=== PATIENT | male | born 1990 | race Two or more races ===

== ENCOUNTER 2016-10-31 22:19 | Emergency (ER) | payer SELFPAY ==
[~2016-10-31] VITALS: Ht 177.8 cm; Wt 72.6 kg
[2016-10-31 22:50] VITALS: BP 107/63
[2016-10-31] MEDS ORDERED: QUETIAPINE FUMA25 MG ORAL (22:52)
[2016-10-31 23:18] LABS: BASOPHILS % (AUTO) 1.7 % (0.0-2.0); LYMPHOCYTES % (AUTO) 31.7 % (20.0-45.0); MEAN CORPUSCULAR HEMOGLOBIN 30.4 PG (27.0-31.0); MEAN CORPUSCULAR VOLUME 87 FL (80-99); MEAN PLATELET VOLUME 5.5 FL (6.5-10.1); MONOCYTES % (AUTO) 8.1 % (1.0-10.0); NEUTROPHILS % (AUTO) 56.4 % (45.0-75.0); PLATELET COUNT 281 K/UL (150-450); RED BLOOD COUNT 4.68 M/UL (4.70-6.10); RED CELL DISTRIBUTION WIDTH 11.2 % (11.6-14.8); WHITE BLOOD COUNT 6.7 K/UL (4.8-10.8)
[2016-10-31 23:36] LABS: ACETAMINOPHEN < 10 ug/mL (10-30); ALANINE AMINOTRANSFERASE 20 U/L (3-41); ALBUMIN/GLOBULIN RATIO 1.7 (1.0-2.7); ALCOHOL 127 mg/dL; ANION GAP 18 (5-15); ASPARTATE AMINO TRANSFERASE 29 U/L (5-40); CALCIUM 8.9 mg/dL (8.6-10.2); CARBON DIOXIDE 21 mEQ/L (20-30); CHLORIDE 101 mEQ/L (98-107); CREATININE 0.8 mg/dL (0.7-1.2); GLOMERULAR FILTRATION RATE > 60 mL/min (>60); HEMOLYSIS 10; POTASSIUM 3.2 mEQ/L (3.4-4.9); SODIUM 140 mEQ/L (135-145); TOTAL PROTEIN 6.8 g/dL (6.6-8.7)
[2016-11-01 01:29] VITALS: BP 110/65
--- NOTE | 2016-11-01 03:15 | Emergency Room Report ---
History of Present Illness General Chief Complaint: Substance Abuse Source: Patient, EMS Present Illness HPI 25YOM BIBEMS with [employer] after patient found wandering train tracks "looking for my sweater." States was in conversation with devil about doing so. Endorsed drug use, ETOH. States known schizophrenia, non-compliant with "400mg of seroquel every day." Hasnt taken in a while. Denies other medical problems. Denies trauma. Allergies: Coded Allergies: No Known Allergies (Unverified , 10/31/16) Patient History Past Medical History: psych hx Past Surgical History: none Pertinent Family History: none Social History: Reports: alcohol use, drug use Immunizations: UTD Reviewed Nursing Documentation: PMH: Agreed, PSxH: Agreed Nursing Documentation-PMH Hx Asthma: Yes History Of Psychiatric Problem: Yes - SCHIZO Review of Systems All Other Systems: negative except mentioned in HPI Physical Exam Vital Signs Date Time Temp Pulse Resp B/P Pulse Ox O2 Delivery O2 Flow Rate FiO2 10/31/16 22:12 97.5 71 16 124/71 93 Room Air Sp02 EP Interpretation: reviewed, normal General Appearance: normal inspection, well appearing, no apparent distress, alert, GCS 15, non-toxic, cachetic, other - Disheveled, barefoot, covered in dirt Head: normocephalic, atraumatic Eyes: bilateral eye EOMI, bilateral eye PERRL ENT: normal ENT inspection, hearing grossly normal, normal voice Neck: normal inspection, full range of motion, supple, no bony tend Respiratory: normal inspection, lungs clear, normal breath sounds, no respiratory distress, no retraction, no wheezing Cardiovascular #1: regular rate, rhythm, no edema Gastrointestinal: normal inspection, normal bowel sounds, non tender, soft, no guarding, no hernia Genitourinary: no CVA tenderness Musculoskeletal: normal inspection, back normal, normal range of motion, Sonia' s Sign negative Neurologic: normal inspection, alert, oriented x3, responsive, weather forecaster III-XII nml as tested, motor strength/tone normal, speech normal Psychiatric: normal inspection, mood/affect normal, other - Delusional, intermittent hysterical laughing. Skin: normal inspection, normal color, no rash Lymphatic: normal inspection Medical Decision Making Diagnostic Impression: Primary Impression: Substance abuse Additional Impressions: Amphetamine abuse Marijuana abuse Alcohol abuse Schizophrenia Qualified Codes: F20.9 - Schizophrenia, unspecified Hypokalemia ER Course AMS - Polysubstance abuse + ETOH - Also known schizophrenic - denies SI, HI but endorsing discussion with rayshawn and was found wandering train tracks by [employer] - Slept throughout night after dose of seroquel - Labs show mild HypoK which was repleted - Patient not on hold Medically cleared Dr Yost consulted/text sent at 530am for Psych eval - Endorsed to Dr Mchugh at 615am to followup Psych eval, re-eval patient Last Vital Signs Date Time Temp Pulse Resp B/P Pulse Ox O2 Delivery O2 Flow Rate FiO2 11/01/16 01:29 97.5 74 16 110/65 100 Room Air Status: improved Referrals: NOT CHOSEN IPA/,REFERRING (PCP) KATIE CHANDLER M.D. Nov 01, 2016 03:15
[2016-11-01 05:27] VITALS: BP 122/65
[2016-11-01 09:00] VITALS: BP 103/45
[2016-11-01 11:30] VITALS: BP 108/59
[2016-11-01 12:13] VITALS: BP 108/59
--- NOTE | 2016-11-01 23:32 | Consultation ---
History of Present Illness General Date patient seen: Nov 01, 2016 Chief Complaint: Substance Abuse Present Illness HPI 25 yo m brought in by [employer] after patient found wandering train tracks "looking for my sweater." the pt apparently has history of schizophrenia and several psych hospitalixation. the pt was sleepy and asked to be left alone. the pt denies any psychotic/manic sxs. the pt denied si/hi. his system is positive for meth and mj Allergies: Coded Allergies: No Known Allergies (Unverified , 10/31/16) Medication History Scheduled Quetiapine Fumarate* (Seroquel*), Unknown Dose ORAL DAILY, (Reported) Patient History History Provided By: Patient, Medical Record, PMD Healthcare decision maker Resuscitation status Advanced Directive on File Review of Systems All Other Systems: negative except mentioned in HPI Physical Exam General Appearance: no apparent distress, alert, thin Neurologic: alert, oriented x 3, responsive, normal mood/affect Last 24 Hour Vital Signs Date Time Temp Pulse Resp B/P Pulse Ox O2 Delivery O2 Flow Rate FiO2 11/01/16 12:13 98.0 58 16 108/59 100 Room Air 11/01/16 11:30 58 16 108/59 100 Room Air 11/01/16 09:00 58 12 103/45 100 Room Air 11/01/16 05:27 98.0 70 16 122/65 100 Room Air 11/01/16 01:29 97.5 74 16 110/65 100 Room Air Intake and Output 10/31/16 11/01/16 19:00 07:00 Output Total 100 ml Balance -100 ml Output Urine Total 100 ml Height (Feet): 5 Height (Inches): 10.00 Weight (Pounds): 160 Assessment/Plan Status: stable Assessment/Plan poly substance abuse. not a dts/dto -pt maybe discharged -the pt received a low dose of seroquel the night prior Michael Yost M.D. Nov 01, 2016 23:31
== END 2016-11-01 12:13 | disposition home or self-care (01) ==
LOC: EDBD 22:19 → EMR 22:38 → EDBD 22:38 → EMR 11-01 12:13
DX: F15.10 Other stimulant abuse, uncomplicated (principal); F10.10 Alcohol abuse, uncomplicated; F12.10 Cannabis abuse, uncomplicated; F20.9 Schizophrenia, unspecified; E87.6 Hypokalemia; J45.909 Unspecified asthma, uncomplicated
CPT/HCPCS: 36415; 80053; 80300; 85025; 99284; G0480; 80329; J8499